=== PATIENT | male | born 1965 | race Caucasian/White ===

== ENCOUNTER 2016-08-29 17:08 | Emergency (ER) | payer BC ==
[2016-08-29] MEDS ORDERED: IBUPROFEN 400 MG TABLET PO ONE (17:40)
--- NOTE | 2016-08-29 17:40 | ERNOTE ---
Date of Service: 08/29/16 Time Seen by Provider: 08/29/16 17:26 Stated Complaint: COUGH, STUFFY NOSE Presenting Symptoms:: cough, sore throat, runny nose, fever Source: patient Exam Limitations: no limitations Immunizations: IMMUNIZATION HX Immunizations Up to Date Yes History of Influenza Vaccine No Allergies/Adverse Reactions: Allergies No Known Allergies Allergy (Verified 08/29/16 17:21) Home Medications: HOME MEDICATIONS Oseltamivir Phosphate [Tamiflu] 75 mg PO BID #10 cap 08/29/16 [Last Taken Unknown] - History of Present Ilness Narrative: Pt. comes in with 36 hour history of fever, malaise, rhinorrhea, sinus congestion, sore throat, SOB and cough. Pt. denies any prehospital treatment, alleviating factors, aggravating factors, or recent sick contacts. Review of Systems - Review of Systems Constitutional: Present: fever, chills, weakness, fatigue, malaise. Absent: recent illness EYE: Present: no symptoms reported. Absent: eye pain, eye discharge, double vision, vision changes ENT: Present: nose congestion, nasal drainage, sore throat. Absent: ear pain Respiratory: Present: shortness of breath, cough. Absent: wheezing Cardiology: Present: no symptoms reported. Absent: chest pain, palpitations, edema Gastrointestinal/Abdominal: Present: no symptoms reported. Absent: nausea, vomiting, diarrhea Genitourinary: Present: no symptoms reported Musculoskeletal: Present: no symptoms reported. Absent: back pain, joint pain Skin: Present: no symptoms reported Neurological: Present: no symptoms reported. Absent: headache, dizziness/light- headedness, numbness, tingling All Other Systems: All systems neg except as marked - Patient's Past Medical History Patient History - Medical: No pertinent hx, Other Patient History - Cancer: No Hx of Cancer Patient History - Surgical Procedures: Back Surgery, Other - Social History Living Situations: home Alcohol Use: rarely Drug Use: none Physical Exam - Physical Exam General Appearance: Present: wd/wn, alert, no apparent distress Eye Exam: Normal inspection: bilateral, PERRL: bilateral, EOMI: bilateral Ears, Nose, Throat: Present: nasal congestion, sinus pain/drainage, pharyngeal erythema, pharyngeal swelling, tonsillar exudate - white, tonsillar swelling Neck: Present: normal inspection, nontender, supple, full range of motion. Absent: lymphadenopathy (R), lymphadenopathy (L) Respiratory: Present: no respiratory distress, no accessory muscle use, chest nontender, lungs clear, decreased breath sounds - bases Cardiovascular/Chest: Present: regular rate, rhythm, no murmur, normal peripheral pulses Gastrointestinal/Abdominal: Present: normal bowel sounds, nontender, nondistended, soft Back Exam: Present: normal inspection, normal range of motion, no CVA tenderness , no vertebral tenderness Extremity Exam: Present: normal inspection, non-tender, no edema, normal range of motion Neurological Exam: Present: alert, oriented, normal mood/affect, no motor/ sensory deficits Skin Exam: Present: normal color, warm/dry. Absent: pallor, skin rash ED Progress - Results and Orders Patient's Lab Results:: I have reviewed the patient's lab results. - Vital Signs Patient's Vital Signs:: I have reviewed the patient's vital signs. Vital Signs: Vital Signs 08/29/16 17:17 Temperature 38.9 C H Pulse Rate 84 Respiratory 16 Rate Blood Pressure 127/72 O2 Sat by Pulse 93 Oximetry - X-Ray X-Ray #1 X-Ray: chest Interpretation: Reviewed by me X-ray Comments: no acute cardiopulmonary process noted - Progress/Reassessment Chief Complaint: Upper Respiratory Symptoms Progress:: Unchanged Departure - Departure Clinical Impression: Influenza A Disposition: Home self-care Condition: Good Instructions: Influenza, Adult, [id number] Additional Instructions: Please follow up with primary provider in 2-3 days and drink plenty of fluid and rest at home until you no longer have a fever for over 24 hours. Prescriptions: Oseltamivir Phosphate [Tamiflu] 75 mg PO BID #10 cap
[2016-08-29] MEDS ORDERED: IBUPROFEN 400 MG TABLET ONE (17:56)
[2016-08-30 01:10] VITALS: BP 138/66
== END 2016-08-29 18:45 | disposition home or self-care (01) ==
LOC: ER 17:08
DX: J10.1 Influenza due to other identified influenza virus with other respiratory manifestations (principal)

== ENCOUNTER 2017-04-05 01:51 | Emergency (ER) | payer BC ==
[2017-04-05] MEDS ORDERED: KETOROLAC TROMETHAMINE 30 MG/ML VIAL IM ONE (02:01)
[2017-04-05] MEDS ORDERED: KETOROLAC TROMETHAMINE 30 MG/ML VIAL ONE (02:06)
--- NOTE | 2017-04-05 02:07 | ERNOTE ---
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 The patient has a remote history of back problems, he has had surgery and has pins and screws and rods in his back. The patient states he was in his previous good state of health until earlier today. He said that he noticed an insidious onset of lower back pain. It started out very mild and became gradually worse throughout the day. It got so bad this evening that he was having trouble getting up out of a chair. He denies any recent trauma. He denies any recent heavy lifting. Patient denies loss of control of bladder or bowel function. The patient denies numbness or tingling. The patient denies muscular weakness. Patient really denies any other complaints besides pain. The pain is located in his back from the lower thoracic through lumbar area. He has no discomfort over the sacroiliac joints. There is no reproducible pain with palpation Timing: Reports: getting worse Quality/Severity: Reports: severe, aching, burning Location of pain: Reports: lower back, radiating to rt thigh/leg, radiating to lf thigh/leg, other - patient says that occasionally he gets radiation down both legs. Activities at Onset: Reports: none Recent Injury?: Reports: no Modifying Factors - (Improves): Reports: nothing Modifying Factors - (Worsens): Reports: nothing Associated Symptoms: Denies: fever/chills, sweating, constipation/incontinence, nausea/vomiting, problems urinating, difficulty walking, lightheadedness, numbess/weakness in legs, other Prior Treament: Denies: recently seen Review of Systems - Review of Systems Constitutional: Present: no symptoms reported. Absent: weakness, fatigue, malaise EYE: Present: no symptoms reported ENT: Present: no symptoms reported Respiratory: Present: no symptoms reported Cardiology: Present: no symptoms reported Gastrointestinal/Abdominal: Present: no symptoms reported Genitourinary: Present: no symptoms reported Musculoskeletal: Present: back pain Skin: Present: no symptoms reported Neurological: Present: no symptoms reported. Absent: anxiety, depressed, headache, seizure, weakness, numbness, tingling Endocrine: Present: no symptoms reported Hematologic/Lymphatic: Present: no symptoms reported Psych: Present: no symptoms reported All Other Systems: All systems neg except as marked - Patient's Past Medical History Patient History - Medical: No pertinent hx, Other Patient History - Cardiac/Respiratory: Hypertension, Hyperlipidemia, Other Patient History - Cancer: No Hx of Cancer Patient History - Surgical Procedures: Back Surgery, Other Patient History - Other: None - Social History Living Situations: home Abuse History: No History of abuse Psych History: No pertinent hx Alcohol Use: rarely Drug Use: none - Immunizations Immunizations Up to Date: Yes History of Influenza Vaccine: No Physical Exam - Physical Exam General Appearance: Present: wd/wn, alert, no apparent distress Head Exam: Present: normal inspection, no evidence of injury Eye Exam: Normal inspection: bilateral, PERRL: bilateral, EOMI: bilateral Ears, Nose, Throat: Present: normal ENT inspection, normal pharynx Neck: Present: normal inspection, nontender, supple Respiratory: Present: no respiratory distress, normal breath sounds, no accessory muscle use, chest nontender, lungs clear Cardiovascular/Chest: Present: regular rate, rhythm, no murmur, normal peripheral pulses Gastrointestinal/Abdominal: Present: normal bowel sounds, nontender, nondistended, soft, no organomegaly Back Exam: Present: normal inspection, normal range of motion, no CVA tenderness , no vertebral tenderness, other - patient has absolutely no pain to palpation over the bony spine or axial skeleton Extremity Exam: Present: normal inspection, non-tender, normal range of motion, no edema Neurological Exam: Present: alert, oriented, normal mood/affect, no motor/ sensory deficits Skin Exam: Present: normal color, warm/dry Lymphatic Exam: Present: no adenopathy ED Progress - Vital Signs Patient's Vital Signs:: I have reviewed the patient's vital signs. Plan - Plan Plan: This is a 51-year-old male with a long history of low back pain. He has had surgery on his back. He describes an insidious onset of lower back pain throughout the day today. No precipitating factors. No fever no loss of control of bowel or bladder no weakness no numbness or tingling able to walk without difficulty. I suspect that this represents a degenerative change. It is in the center and not paraspinal so I doubt that this is muscular although it is certainly a possibility. I do not believe that plain films are likely to yield any significant results. Likewise CT scan is unlikely to that definitely identify the etiology of low back pain at a single level in someone who has had surgery. Therefore I am focusing on controlling pain. I have given him a shot of Toradol. When that starts working I will have the patient go home with ibuprofen 600 mg. He should take one every 6 hours. I instructed him that he needs to follow up with his back specialist. I did discuss with him concerning symptoms. Specifically mentioned were loss of control of bowel loss of control of bladder weakness in muscles inability to stand, new numbness or tingling, or any other concerning symptoms. If any of these happen he should return immediately to the ER. Otherwise he is given a follow-up with his back specialist. Departure Clinical Impression: Lumbago - Departure Disposition: Home self-care Condition: Stable Instructions: Back Pain, Adult Additional Instructions: As we discussed, I suspect that her symptoms are coming from general deterioration of your spine. This happens to everybody has to get older however your previous injury will predispose you to this. I want you to call your family doctor or your back specialist and set up a follow-up appointment as soon as possible. If he loses control of your bowel or bladder, meaning U poop or when necessary herself, you should return immediately to the ER. If you develop numbness or tingling in her legs you should return to the ER. If your muscles have no strength in your leg sutured return to the ER immediately. Otherwise he needs to follow up with her back specialist. Take the prescribed ibuprofen. Take 600 mg (one tablet) every 6 hours for at least 5 days. This helps with pain but more importantly it helps with inflammation. Return for anything new or worrisome. Prescriptions: Ibuprofen [Motrin] 600 mg PO TID PRN #30 tab PRN Reason: Pain
[2017-04-05 16:34] VITALS: BP 133/76
== END 2017-04-05 02:43 | disposition home or self-care (01) ==
LOC: ER 01:51
DX: M54.5 Low back pain (principal)